=== PATIENT | female | born 2000 | race Caucasian/White ===

== ENCOUNTER → 2022-05-23 15:00 | Outpatient (BNVA) | payer BC, SELFPAY | PROVIDERS: Visit Provider Nurse Practitioner Family | DX: Z02.0 Encounter for examination for admission to educational institution (principal); Z23 Encounter for immunization; Z71.89 Other specified counseling | CPT/HCPCS: 82040; 84270; 86706 ==

== ENCOUNTER → 2022-06-21 08:50 | Outpatient (BNVA) | payer BC, SELFPAY | PROVIDERS: Visit Provider Nurse Practitioner Women's Health | DX: Z12.4 Encounter for screening for malignant neoplasm of cervix (principal); Z30.433 Encounter for removal and reinsertion of intrauterine contraceptive device | CPT/HCPCS: 81025; 88175 ==